=== PATIENT | female | born 2000 | race Caucasian/White ===

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

== ENCOUNTER → 2021-07-04 | Outpatient (CLI) | payer BC | LOC: EMI 14:44 | DX: G43.009 Migraine without aura, not intractable, without status migrainosus (principal); G44.89 Other headache syndrome; H53.9 Unspecified visual disturbance; R20.2 Paresthesia of skin; J32.0 Chronic maxillary sinusitis | CPT/HCPCS: 70553; A9577 ==